=== PATIENT | male | born 1970 | race Caucasian/White ===

== ENCOUNTER 2021-11-08 11:14 | Emergency (ER) | payer BC ==
[~2021-11-08] VITALS: Ht 177.8 cm; Wt 82.0 kg
[2021-11-08 11:29] VITALS: BP 125/98
[2021-11-08] MEDS ORDERED: IBUP-1986 PO (13:42)
== END 2021-11-08 13:57 | disposition home or self-care (01) ==
LOC: ER 11:14
DX: S83.92XA Sprain of unspecified site of left knee, initial encounter (principal); Z79.1 Long term (current) use of non-steroidal anti-inflammatories (NSAID); X58.XXXA Exposure to other specified factors, initial encounter; Y93.89 Activity, other specified; Y92.89 Other specified places as the place of occurrence of the external cause; Y99.8 Other external cause status
CPT/HCPCS: 73564; 99283